=== PATIENT | male | born 1940 | race Caucasian/White ===

== ENCOUNTER 2019-06-15 20:06 | Emergency (ER) | payer MEDICARE ==
[~2019-06-15] VITALS: Ht 157.5 cm; Wt 68.1 kg
[2019-06-15] MEDS ORDERED: PRIL40 PO (20:42)
[2019-06-15] MEDS ORDERED: MYRBETR50MG PO (20:42)
[2019-06-15] MEDS ORDERED: NAPROSYN500 MG PO (20:43)
[2019-06-15] MEDS ORDERED: LIORESAL 1010 MG/TAB PO (20:43)
[2019-06-15] MEDS ORDERED: DITROPAN XL10 MG PO (20:43)
[2019-06-15] MEDS ORDERED: BENTYL 20MG20 MG/TAB PO (20:43)
[2019-06-15 20:56] LABS: MEAN CELL VOLUME 90 fl (80.0-100.0); MEAN CORPUSCULAR HGB CONC 33 g/dl (33.0-37.0); MEAN PLATELET VOLUME 10.4 fl (7.4-10.4); PLATELET COUNT 100 K/mm3 (130-400); REDCELL DISTRIBUTION WIDTH-CV 13.2 % (11.5-14.5)
[2019-06-15 21:02] LABS: HEMOGLOBIN 18.6 g/dl (13.5-18.0); MEAN CORPUSCULAR HEMOGLOBIN 30 pg (27.0-31.0)
[2019-06-15 21:07] LABS: ALBUMIN 4.4 gm/dL (3.5-5.0); BILIRUBIN,TOTAL 5.1 mg/dL (0.0-1.0); CALCIUM 10.3 mg/dL (8.4-10.2); CREATININE, serum 2.35 (0.66-1.25); POTASSIUM 3.5 mmol/L (3.4-5.0); TOTAL PROTEIN 7.7 gm/dL (6.4-8.2)
[2019-06-15 21:19] LABS: BAND 21 % (0-10); LYMPHOCYTE 20 % (20.0-51.0); NEUTROPHILS 57 % (42.0-75.2); PLATELET ESTIMATE DECREASED (NORMAL)
[2019-06-15 21:27] LABS: INR 1.4 (0.8-3.0); PROTHROMBIN TIME 17.1 SECONDS (9.7-12.8)
[2019-06-15 21:27] LABS: TROPONIN-I 0.375 ng/mL (0.000-0.035)
[2019-06-15 21:29] LABS: PARTIAL THROMBOPLASTIN TIME 37.7 SECONDS (26.0-37.0)
[2019-06-15 23:02] VITALS: BP 101/54; PULSE 133; TEMP 98.9
[2019-06-15 23:52] LABS: COLLECTION METHOD CLEAN CATCH
[2019-06-16 00:26] LABS: MUCOUS Present /lpf; PH 5 (5-8); SQUAMOUS EPITHELIAL 0-2 /hpf; URINE APPEARANCE Cloudy; URINE BACTERIA Rare /hpf; URINE BILIRUBIN Positive (NEGATIVE); URINE BLOOD 3+ (NEGATIVE); URINE COLOR Amber; URINE GLUCOSE Negative (NEGATIVE); URINE KETONE Trace (NEGATIVE); URINE LEUKOCYTE ESTERASE 1+ (NEGATIVE); URINE NITRATE Negative (NEGATIVE); URINE PROTEIN(semi-quant) 2+ (NEGATIVE); URINE RBC 20-50 /hpf; URINE UROBILINOGEN >=4.0 mg/dL (NEGATIVE)
== END 2019-06-15 23:20 | disposition short-term general hospital (02) ==
LOC: COL.ER 20:06
PROVIDERS: Emergency Medicine
DX: A41.9 Sepsis, unspecified organism (principal); R65.20 Severe sepsis without septic shock; E16.2 Hypoglycemia, unspecified; I21.4 Non-ST elevation (NSTEMI) myocardial infarction; K80.50 Calculus of bile duct without cholangitis or cholecystitis without obstruction; N17.9 Acute kidney failure, unspecified; K21.9 Gastro-esophageal reflux disease without esophagitis; Z87.442 Personal history of urinary calculi
CPT/HCPCS: J2405; J2543; J7030